=== PATIENT | male | born 1965 | race Caucasian/White ===

== ENCOUNTER 2017-08-07 12:38 | Emergency (ER) | payer SELFPAY ==
[2017-08-07] MEDS ORDERED: Acetaminophen/oxyCODONE 325-5 MG Tab PO ONE (12:53)
--- NOTE | 2017-08-07 14:08 | CR ---
Chest and left ribs: Frontal view of the chest was obtained as well as three views of the left ribs. Comparison: No prior chest or rib exam. Heart size and mediastinum are normal. Minimal left basilar atelectasis is seen. Lungs otherwise are clear. No pneumothorax is identified. No discrete fracture or other left-sided rib abnormality is appreciated. Impression: 1. Left basilar atelectasis. 2. Nothing acute is otherwise seen on frontal chest x-ray. No definite left-sided rib fracture is seen. Nondisplaced fracture could be missed. Diagnostic code #2
--- NOTE | 2017-08-07 14:08 | CR ---
Left shoulder: Three views of the left shoulder were obtained. Comparison: No previous shoulder study. Acromioclavicular separation is seen with elevated left clavicle in relation to the acromion process. Glenohumeral joint is unremarkable. No acute fracture or other abnormality is seen. Impression: 1. Left acromioclavicular separation. Diagnostic code #3
--- NOTE | 2017-08-07 14:27 | EDM.PDOC ---
ED HPI GENERAL MEDICAL PROBLEM - General Chief Complaint: Upper Extremity Injury/Pain Stated Complaint: LEFT SHOULDER INJURY Time Seen by Provider: 08/07/17 12:47 Source of Information: Reports: Patient History Limitations: Reports: No Limitations - History of Present Illness INITIAL COMMENTS - FREE TEXT/NARRATIVE: The patient presents with left shoulder and chest pain after he fell yesterday. He did not hit his head or hurt his neck. He has pain with moving his arm and he noticed a deformity looking in the mirror in his shoulder yesterday. He has pain with deep breathing. He has no abdominal pain, hip or leg pain. He has no numbness or weakness. Onset: Sudden Duration: Day(s): (Yesterday) Location: Reports: Chest, Upper Extremity, Left (Shoulder) Quality: Reports: Sharp Severity: Moderate Improves with: Reports: Immobilization Worsens with: Reports: Movement Associated Symptoms: Reports: Chest Pain. Denies: Headaches, Nausea/Vomiting, Shortness of Breath Treatments PHYSICAL THERAPY PROFESSOR: Reports: Other (see below) Other Treatments PHYSICAL THERAPY PROFESSOR: Advil Left Shoulder Pain Score (Numeric/FACES): 8 - Related Data Allergies Allergy/AdvReac Type Severity Reaction Status Date / Time bees Allergy Anaphylactic Uncoded 08/07/17 12:44 Shock kidney dye Allergy Cannot Uncoded 08/07/17 12:44 Remember Home Meds: Home Meds oxyCODONE HCl/Acetaminophen [Percocet 5-325 mg Tablet] 1 - 2 each PO Q6HR PRN # 20 tablet 08/07/17 [Rx] Past Medical History Genitourinary History: Reports: Other (See Below) Other Genitourinary History: left kidney removed Social & Family History - Tobacco Use Smoking Status *Q: Current Every Day Smoker Years of Tobacco use: 38 Packs/Tins Daily: 1 - Recreational Drug Use Recreational Drug Use: Yes Drug Use in Last 12 Months: Yes Recreational Drug Type: Reports: Marijuana/Hashish Review of Systems - Review of Systems Review Of Systems: See Below Constitutional: Reports: No Symptoms Eyes: Reports: No Symptoms Ears: Reports: No Symptoms Nose: Reports: No Symptoms Mouth/Throat: Reports: No Symptoms Respiratory: Reports: No Symptoms Cardiovascular: Reports: Chest Pain GI/Abdominal: Reports: No Symptoms Genitourinary: Reports: No Symptoms Musculoskeletal: Reports: No Symptoms ED EXAM, GENERAL - Physical Exam Exam: See Below Exam Limited By: No Limitations General Appearance: Alert, No Apparent Distress Ears: Normal External Exam Nose: Normal Inspection Head: Atraumatic, Normocephalic Neck: Normal Inspection Respiratory/Chest: No Respiratory Distress, Lungs Clear, Normal Breath Sounds Cardiovascular: Regular Rate, Rhythm, No Edema, No Murmur, Other (Left chest pain upon palpation) GI/Abdominal: Soft, Non-Tender, No Organomegaly, No Mass Back Exam: Normal Inspection Extremities: Other (Pain upon palpation to the left AC joint) Neurological: Alert, Oriented, No Motor/Sensory Deficits Course - Vital Signs Last Recorded V/S: Last Vital Signs Temp 98.3 F 08/07/17 12:44 Pulse 90 08/07/17 12:44 Resp 18 08/07/17 12:44 BP 130/93 H 08/07/17 12:44 Pulse Ox 94 L 08/07/17 12:44 - Orders/Labs/Meds Orders: Active Orders 24 hr Category Date Time Status Incentive Spirometry [RT Incentive Spirometry] [RC] Care 08/07/17 14:24 Active ASDIRECTED Durable Medical Equipment for Discharge [DME for Oth 08/07/17 14:28 Ordered Discharge] [COMM] Stat Meds: Medications Discontinued Medications Generic Name Dose Route Start Last Admin Trade Name Freq PRN Reason Stop Dose Admin Oxycodone/Acetaminophen 2 tab 08/07/17 12:53 08/07/17 13:00 Percocet 325-5 Mg PO 08/07/17 12:54 2 tab ONETIME ONE Administration - Re-Assessments/Exams Free Text/Narrative Re-Assessment/Exam: 08/07/17 14:31 His CXR shows a left rib fracture. Dr Wood did not see that but clinically it appears he has one. X-ray of his shoulder shows an AC separation. I gave him some percocet. I will give him some percocet for the pain, sling for his arm and incentive spyrometer. Departure - Departure Time of Disposition: 14:35 Disposition: Home, Self-Care 01 Condition: Good Clinical Impression: Fall Qualifiers: Encounter type: initial encounter Qualified Code(s): W19.XXXA - Unspecified fall, initial encounter Rib fracture Qualifiers: Encounter type: initial encounter Rib fracture type: single rib Fracture type: closed Laterality: left Qualified Code(s): S22.32XA - Fracture of one rib, left side, initial encounter for closed fracture AC separation Qualifiers: Encounter type: initial encounter Laterality: left Qualified Code(s): S43.102A - Unspecified dislocation of left acromioclavicular joint, initial encounter - Discharge Information Prescriptions: oxyCODONE HCl/Acetaminophen [Percocet 5-325 mg Tablet] 1 - 2 each PO Q6HR PRN # 20 tablet PRN Reason: Pain Referrals: Geoff Anand Jr, MD [Primary Care Provider] - 1 Week Forms: ED Department Discharge Additional Instructions: Take the percocet 1 to 2 pills every 6 hours as needed for pain. Ice your shoulder for 15 minutes 3 times per day for 5 days. Follow up with Dr Butler within 1 week. Please return if you are worse. Use the incentive spyrometer 10 reps every other hour for 5 days. - My Orders Last 24 Hours: My Active Orders 08/07/17 14:24 Incentive Spirometry [RT Incentive Spirometry] [RC] ASDIRECTED 08/07/17 14:28 Durable Medical Equipment for Discharge [DME for Discharge] [COMM] Stat - Assessment/Plan Last 24 Hours: My Active Orders 08/07/17 14:24 Incentive Spirometry [RT Incentive Spirometry] [RC] ASDIRECTED 08/07/17 14:28 Durable Medical Equipment for Discharge [DME for Discharge] [COMM] Stat
== END 2017-08-07 14:55 | disposition home or self-care (01) ==
LOC: JD.ED 12:38
DX: S22.32XA Fracture of one rib, left side, initial encounter for closed fracture (principal); S43.102A Unspecified dislocation of left acromioclavicular joint, initial encounter; F17.210 Nicotine dependence, cigarettes, uncomplicated; Z90.5 Acquired absence of kidney; Z91.030 Bee allergy status; Z91.041 Radiographic dye allergy status; W19.XXXA Unspecified fall, initial encounter
CPT/HCPCS: 71101; 73030; 99284; A9270; 99283

== ENCOUNTER 2017-08-15 16:09 | Emergency (ER) | payer SELFPAY ==
--- NOTE | 2017-08-15 17:14 | EDM.PDOC ---
ED HPI GENERAL MEDICAL PROBLEM - General Chief Complaint: Chest Pain Stated Complaint: FOLLOW UP FOR BROKEN RIBS Time Seen by Provider: 08/15/17 16:49 Source of Information: Reports: Patient History Limitations: Reports: No Limitations - History of Present Illness INITIAL COMMENTS - FREE TEXT/NARRATIVE: Patient is a 52-year-old male who is being seen in the ED with concerns of continued pain from fractured ribs after falling on a 5 gallon bucket landing on the left side of his chest and clavicle. He was intially evaluated in the E.D. with CXR obtained with possible left rib fractures. X-ray of the clavicle did not reveal fracture present. There was also A/C separation. He was discharged home with narcotic pain medications to which hes been taking only at night prior to going to bed secondary to pain. He's been refraining from activities that cause worsening pain. States he ran out of this medication yesterday at about 1500 hrs. Unable to sleep last night. Unable to get in with his prior care provider Geoff Anand until September 07, 2017. He denies any new complaints. Treatments YIELD CLERK: Reports: Other (see below) Other Treatments YIELD CLERK: motrin Left Chest Pain Score (Numeric/FACES): 8 - Related Data Allergies Allergy/AdvReac Type Severity Reaction Status Date / Time bees Allergy Anaphylactic Uncoded 08/07/17 12:44 Shock kidney dye Allergy Cannot Uncoded 08/07/17 12:44 Remember Home Meds: Home Meds oxyCODONE HCl/Acetaminophen [Percocet 5-325 mg Tablet] 1 each PO Q6HR PRN #20 tablet 08/15/17 [Rx] Past Medical History Genitourinary History: Reports: Other (See Below) Other Genitourinary History: left kidney removed Musculoskeletal History: Reports: Other (See Below) Other Musculoskeletal History: right foot and left foot with pins and have been removed. Social & Family History - Tobacco Use Smoking Status *Q: Current Every Day Smoker Years of Tobacco use: 35 Packs/Tins Daily: 2 - Caffeine Use Caffeine Use: Reports: Coffee, Soda - Recreational Drug Use Recreational Drug Use: Yes Drug Use in Last 12 Months: Yes Recreational Drug Type: Reports: Marijuana/Hashish Review of Systems - Review of Systems Review Of Systems: ROS reveals no pertinent complaints other than HPI. ED EXAM, GENERAL - Physical Exam Exam: See Below Exam Limited By: No Limitations General Appearance: Alert, WD/WN, Mild Distress Ears: Hearing Grossly Normal Nose: Normal Inspection Throat/Mouth: Normal Voice, No Airway Compromise Neck: Normal Inspection, Supple, Non-Tender, Full Range of Motion Respiratory/Chest: No Respiratory Distress, No Accessory Muscle Use, Chest Non- Tender (left clavicle) Cardiovascular: Normal Peripheral Pulses, Regular Rate, Rhythm Peripheral Pulses: 4+: Radial (L) Back Exam: Normal Inspection Extremities: Other (Grade 3 A/C joint seperation with pain noted along the left clavicle. ) Neurological: Alert, Oriented, CN II-XII Intact Psychiatric: Normal Affect, Normal Mood Skin Exam: Warm, Dry, Intact, Normal Color Course - Vital Signs Last Recorded V/S: Last Vital Signs Temp 98.4 F 08/15/17 16:25 Pulse 94 08/15/17 16:25 Resp 20 08/15/17 16:25 BP 125/89 08/15/17 16:25 Pulse Ox 98 08/15/17 16:25 - Re-Assessments/Exams Free Text/Narrative Re-Assessment/Exam: Will discharge patient home with instructions as documented. Prescription for narcotic medication provided. Departure - Departure Time of Disposition: 17:21 Disposition: Home, Self-Care 01 Condition: Good Clinical Impression: AC separation Qualifiers: Encounter type: initial encounter Laterality: left Qualified Code(s): S43.102A - Unspecified dislocation of left acromioclavicular joint, initial encounter - Discharge Information Prescriptions: oxyCODONE HCl/Acetaminophen [Percocet 5-325 mg Tablet] 1 each PO Q6HR PRN #20 tablet PRN Reason: Pain Instructions: Acromioclavicular Separation, Nonspecific Chest Pain, Easy-to- Read Referrals: Geoff Anand Jr, MD [Primary Care Provider] - Forms: ED Department Discharge Additional Instructions: Continue taking the narcotic pain medication as prescribed. No driving while taking this medication. No operate heavy equipment. Utilize Tylenol and ibuprofen in alternating fashion for pain. For severe pain take the narcotic. Apply ice to affected area as needed throughout the day. Refrain from any activities that cause worsening pain. Follow-up with orthopedic surgeon for further pain management and evaluation.
== END 2017-08-15 17:55 | disposition home or self-care (01) ==
LOC: JD.ED 16:09
DX: S43.102A Unspecified dislocation of left acromioclavicular joint, initial encounter (principal); F17.210 Nicotine dependence, cigarettes, uncomplicated; Z90.5 Acquired absence of kidney; Z91.041 Radiographic dye allergy status; Z91.030 Bee allergy status; W19.XXXA Unspecified fall, initial encounter
CPT/HCPCS: 99283

== ENCOUNTER 2018-06-24 10:20 | Inpatient (IN) | payer SELFPAY ==
[2018-06-24] MEDS ORDERED: HYDROmorphone 1 MG/ML Syringe IVPUSH ONE ×2 (11:29→13:32)
[2018-06-24] MEDS ORDERED: Sodium Chloride 0.9% 10 ML Syringe FLUSH PRN (11:29)
[2018-06-24] MEDS ORDERED: Lactated Ringers 1,000 ML IV ONE ×2 (11:29→14:34)
[2018-06-24] MEDS ORDERED: Ondansetron 4 MG/2 ML SDV IVPUSH ONE (11:29)
--- NOTE | 2018-06-24 11:38 | EDM.PDOC ---
<Eveline Harrington - Last Filed: 06/24/18 11:45> ED HPI GENERAL MEDICAL PROBLEM - General Chief Complaint: Abdominal Pain Stated Complaint: LOW ABD PAIN Time Seen by Provider: 06/24/18 11:03 Source of Information: Reports: Patient, Family (mother) History Limitations: Reports: No Limitations - History of Present Illness INITIAL COMMENTS - FREE TEXT/NARRATIVE: Lionel is a 52 year old male accompanied by his mother, Mary, who presents to the ED today for right sided abdominal pain for the past 3 days. Patient states that after eating an [employer] mushroom and swazi, he later developed intense, sharp pain in his abdomen on the right side. At first he thought he was " stopped up", since his last BM was 4 days ago, and he has not been passing as much gas as usual. He took Tylenol PM to help himself sleep. Last night he took Miralax and a suppository with no BM. He then decided the pain was intolerable and came in today. He states that the pain has been the same intensity since it started, and is constant. It is painful to use his core muscles. He was very uncomfortable on the drive into the ED today, especially going over bumps in the road. He has not eaten anything since , and states that drinking makes the pain worse as it adds more abdominal pressure. Patient does smoke 1-2 ppd for the past 40 years, and is a daily marijuana smoker, but has not smoked in the past 4 days. He has decreased urination, and feels that he is dehydrated. He denies any fever, chills, nightsweats. Denies any URI symptoms, chest pain, SOB. Denies nausea, vomiting, diarrhea. Patient does also have a left shoulder complaint that is being worked up by Dr. Butler. Right Abdomen Pain Score (Numeric/FACES): 9 - Related Data Allergies Allergy/AdvReac Type Severity Reaction Status Date / Time bees Allergy Anaphylactic Uncoded 06/24/18 18:35 Shock kidney dye Allergy Cannot Uncoded 06/24/18 18:35 Remember Home Meds: Home Meds . [No Known Home Meds] 06/24/18 [History] Past Medical History Genitourinary History: Reports: Other (See Below) Other Genitourinary History: left kidney removed Musculoskeletal History: Reports: Other (See Below) Other Musculoskeletal History: right foot and left foot with pins and have been removed. Social & Family History - Tobacco Use Smoking Status *Q: Heavy Tobacco Smoker Years of Tobacco use: 40 Packs/Tins Daily: 1.5 - Caffeine Use Caffeine Use: Reports: Coffee - Recreational Drug Use Recreational Drug Use: Yes Recreational Drug Type: Reports: Marijuana/Hashish Recreational Drug Use Frequency: Daily ED ROS GENERAL - Review of Systems Review Of Systems: See Below Constitutional: Reports: No Symptoms HEENT: Reports: No Symptoms Respiratory: Reports: No Symptoms Cardiovascular: Reports: No Symptoms GI/Abdominal: Reports: Abdominal Pain (RUQ, RLQ), Constipation, Decreased Appetite. Denies: Black Stool, Bloody Stool, Diarrhea, Nausea, Vomiting : Reports: Other (decreased frequency) Musculoskeletal: Reports: No Symptoms Neurological: Reports: No Symptoms Psychiatric: Reports: Agitation ED EXAM, GI/ABD - Physical Exam Exam: See Below Exam Limited By: Other (patient is guarding abdomen quite a bit, and somewhat uncooperative.) General Appearance: Alert, Mild Distress Throat/Mouth: Other (dry mucous membranes) Respiratory/Chest: No Respiratory Distress, Normal Breath Sounds Cardiovascular: No Gallop, No Murmur, No Rub, Tachycardia GI/Abdominal Exam: Normal Bowel Sounds (all four quadrants), Guarding, Rebound, Tender (McBurney's point tenderness, Rebound Tenderness. Very tender in the RUQ and RLQ), Other (Heel percussion negative. psoas sign positive. ). No: Hernia, Mass Neurological: Alert, Oriented Psychiatric: Other (Irritated ) Skin Exam: Warm, Dry, Intact Course - Vital Signs Last Recorded V/S: Last Vital Signs Temp 98.7 F 06/24/18 18:01 Pulse 95 06/24/18 21:01 Resp 12 06/24/18 18:01 BP 137/83 06/24/18 21:01 Pulse Ox 97 06/24/18 21:01 - Orders/Labs/Meds Orders: Active Orders 24 hr Category Date Time Status Patient Status [ADT] Routine ADT 06/24/18 15:11 Active Patient Status [ADT] Routine ADT 06/24/18 16:52 Active Activity as Tolerated [RC] .Routine Care 06/24/18 17:00 Active Notify Provider [RC] ASDIRECTED Care 06/24/18 16:51 Active Oxygen Therapy [RC] PRN Care 06/24/18 16:52 Active Pulse Oximetry [RC] ASDIRECTED Care 06/24/18 16:51 Active VTE/DVT Education [RC] PER UNIT ROUTINE Care 06/24/18 16:52 Active Vital Signs [RC] Q4HR Care 06/24/18 16:52 Active Consistent Carbohydrate Diet [DIET] Diet 06/25/18 Lunch Active Regular Diet [DIET] Diet 06/24/18 Dinner Active Acetaminophen/HYDROcodone [[place] 325-5 MG] Med 06/24/18 16:55 Active 2 tab PO Q4H PRN Ertapenem [INVanz] 1 gm Med 06/25/18 09:00 Active Sodium Chloride 0.9% [Normal Saline] 100 ml IV DAILY Morphine Med 06/24/18 16:58 Active 4 mg IVPUSH Q2H PRN Sodium Chloride 0.9% [Normal Saline] 1,000 ml Med 06/24/18 17:00 Active IV ASDIRECTED Sodium Chloride 0.9% [Saline Flush] Med 06/24/18 11:29 Active 10 ml FLUSH ASDIRECTED PRN Peripheral IV Insertion Adult [OM.PC] Routine Oth 06/24/18 11:29 Ordered SCD [Sequential Compression Device] [OM.PC] Routine Oth 06/24/18 17:06 Ordered Schedule Procedure [COMM] Stat Oth 06/24/18 15:10 Ordered Resuscitation Status Routine Resus Stat 06/24/18 16:52 Ordered Medication Orders Hydrocodone Bitart/Acetaminophen ([place] 325-5 Mg) 2 tab PO Q4H PRN PRN Reason: Pain (moderate 4-6) Ertapenem 1 gm/ Sodium (Chloride) 100 mls @ 200 mls/hr IV DAILY RONALD Sodium Chloride (Normal Saline) 1,000 mls @ 100 mls/hr IV ASDIRECTED RONALD Last Admin: 06/24/18 18:16 Dose: 100 mls/hr Morphine Sulfate (Morphine) 4 mg IVPUSH Q2H PRN PRN Reason: Abdominal Pain Stop: 06/26/18 23:59 Last Admin: 06/24/18 22:45 Dose: 4 mg Sodium Chloride (Saline Flush) 10 ml FLUSH ASDIRECTED PRN PRN Reason: Keep Vein Open Last Admin: 06/24/18 11:45 Dose: 10 ml Labs: Laboratory Tests 06/24/18 06/24/18 06/24/18 Range/Units 12:05 12:05 15:30 WBC 14.86 H (4.23-9.07) K/mm3 RBC 5.31 (4.63-6.08) M/mm3 Hgb 15.5 (13.7-17.5) gm/L Hct 46.6 (40.1-51.0) % MCV 87.8 (79.0-92.2) fl MCH 29.2 (25.7-32.2) pg MCHC 33.3 (32.2-35.5) g/dl RDW Std Deviation 43.4 (35.1-43.9) fL Plt Count 313 (163-337) K/mm3 MPV 10.1 (9.4-12.3) fl Neutrophils % (Manual) 87 H (40-60) % Band Neutrophils % 0 (0-10) % Lymphocytes % (Manual) 12 L (20-40) % Atypical Lymphs % 0 % Monocytes % (Manual) 1 L (2-10) % Eosinophils % (Manual) 0 L (0.8-7.0) % Basophils % (Manual) 0 L (0.2-1.2) Platelet Estimate Adequate RBC Morph Comment Normal Sodium 134 L (136-145) mEq/L Potassium 4.1 (3.5-5.1) mEq/L Chloride 99 (98-107) mEq/L Carbon Dioxide 23 (21-32) mEq/L Anion Gap 16.1 H (5-15) BUN 22 H (7-18) mg/dL Creatinine 1.2 (0.7-1.3) mg/dL Est Cr Clr Drug Dosing 76.04 mL/min Estimated GFR (MDRD) > 60 (>60) mL/min BUN/Creatinine Ratio 18.3 H (14-18) Glucose 111 H (74-106) mg/dL Calcium 9.4 (8.5-10.1) mg/dL Total Bilirubin 0.4 (0.2-1.0) mg/dL AST 10 L (15-37) U/L ALT 12 L (16-63) U/L Alkaline Phosphatase 90 (46-116) U/L C-Reactive Protein 41.8 H* (<1.0) mg/dL Total Protein 7.7 (6.4-8.2) g/dl Albumin 2.9 L (3.4-5.0) g/dl Globulin 4.8 gm/dL Albumin/Globulin Ratio 0.6 L (1-2) Lipase 70 L (73-393) U/L Urine Color Yellow (Yellow) Urine Appearance Clear (Clear) Urine pH 6.0 (5.0-8.0) Ur Specific [place] 1.015 (1.005-1.030) Urine Protein Trace H (Negative) Urine Glucose (UA) Negative (Negative) Urine Ketones Negative (Negative) Urine Occult Blood Trace-intact H (Negative) Urine Nitrite Negative (Negative) Urine Bilirubin Negative (Negative) Urine Urobilinogen 0.2 (0.2-1.0) Ur Leukocyte Esterase Negative (Negative) Urine RBC 0-5 (0-5) /hpf Urine WBC 0-5 (0-5) /hpf Ur Epithelial Cells 0-5 (0-5) /hpf Urine Bacteria Few (FEW) /hpf Urine Mucus Few (FEW) /hpf Meds: Medications Generic Name Dose Route Start Last Admin Trade Name Freq PRN Reason Stop Dose Admin Hydrocodone Bitart/Acetaminophen 2 tab 06/24/18 16:55 [place] 325-5 Mg PO Q4H PRN Pain (moderate 4-6) Ertapenem 1 gm/ Sodium 100 mls @ 200 mls/hr 06/25/18 09:00 Chloride IV DAILY RONALD Sodium Chloride 1,000 mls @ 100 mls/hr 06/24/18 17:00 06/24/18 18:16 Normal Saline IV 100 mls/hr ASDIRECTED RONALD Administration Morphine Sulfate 4 mg 06/24/18 16:58 06/24/18 22:45 Morphine IVPUSH 06/26/18 23:59 4 mg Q2H PRN Administration Abdominal Pain Sodium Chloride 10 ml 06/24/18 11:29 06/24/18 11:45 Saline Flush FLUSH 10 ml ASDIRECTED PRN Administration Keep Vein Open Discontinued Medications Generic Name Dose Route Start Last Admin Trade Name Freq PRN Reason Stop Dose Admin Diatrizoate Meglum/Diatrizoate Sod 120 ml 06/24/18 13:01 06/24/18 13:38 Gastrografin 37% PO 06/24/18 13:02 90 ml ONETIME ONE Administration Diphenhydramine HCl 25 mg 06/24/18 12:56 06/24/18 13:02 Benadryl IVPUSH 06/24/18 12:57 25 mg ONETIME ONE Administration Fentanyl Confirm 06/24/18 15:02 Sublimaze Administered 06/24/18 15:03 Dose 250 mcg .ROUTE .STK-MED ONE Fentanyl Confirm 06/24/18 16:10 Sublimaze Administered 06/24/18 16:11 Dose 250 mcg .ROUTE .STK-MED ONE Fentanyl 50 mcg 06/24/18 16:51 Sublimaze IVPUSH Q5M PRN Pain Glycopyrrolate Confirm 06/24/18 16:25 Administered 06/24/18 16:26 Dose 1 mg .ROUTE .STK-MED ONE Hydromorphone HCl 1 mg 06/24/18 11:29 06/24/18 11:45 Dilaudid IVPUSH 06/24/18 11:30 1 mg ONETIME ONE Administration Hydromorphone HCl 1 mg 06/24/18 13:32 06/24/18 13:36 Dilaudid IVPUSH 06/24/18 13:33 1 mg ONETIME ONE Administration Hydromorphone HCl Confirm 06/24/18 15:59 Dilaudid Administered 06/24/18 16:00 Dose 0.5 mg .ROUTE .STK-MED ONE Hydromorphone HCl Confirm 06/24/18 15:59 Dilaudid Administered 06/24/18 16:00 Dose 0.5 mg .ROUTE .STK-MED ONE Hydromorphone HCl 0.5 mg 06/24/18 16:51 Dilaudid IVPUSH Q10M PRN Pain (severe 7-10) Lactated Ringer's 1,000 mls @ 999 mls/hr 06/24/18 11:29 06/24/18 11:43 Ringers, Lactated IV 06/24/18 12:29 999 mls/hr .BOLUS ONE Administration Ertapenem 1 gm/ Sodium 100 mls @ 200 mls/hr 06/24/18 14:07 06/24/18 14:18 Chloride IV 06/24/18 14:36 200 mls/hr ONETIME ONE Administration Lactated Ringer's 1,000 mls @ 150 mls/hr 06/24/18 14:34 06/24/18 14:54 Ringers, Lactated IV 06/24/18 21:13 150 mls/hr .BOLUS ONE Administration Lidocaine HCl Confirm 06/24/18 15:02 Xylocaine-Mpf 1% Administered 06/24/18 15:03 Dose 4 mls @ as directed .ROUTE .STK-MED ONE Lactated Ringer's Confirm 06/24/18 16:08 Ringers, Lactated Administered 06/24/18 16:09 Dose 1,000 mls @ as directed .ROUTE .STK-MED ONE Iopamidol 100 ml 06/24/18 13:01 06/24/18 13:39 Isovue-300 (61%) IVPUSH 06/24/18 13:02 100 ml ONETIME ONE Administration Lidocaine HCl Confirm 06/24/18 15:00 06/24/18 15:50 Xylocaine-Mpf 1% Administered 06/24/18 15:01 8 ml Dose Administration 30 ml .ROUTE .STK-MED ONE Magnesium Citrate 296 ml 06/24/18 16:56 06/24/18 18:16 Citrate Of Magnesia PO 06/24/18 16:57 296 ml ONETIME ONE Administration Midazolam HCl Confirm 06/24/18 15:02 Versed 1 Mg/Ml Administered 06/24/18 15:03 Dose 2 mg .ROUTE .STK-MED ONE Neostigmine Methylsulfate Confirm 06/24/18 16:25 Neostigmine Administered 06/24/18 16:26 Dose 5 mg .ROUTE .STK-MED ONE Ondansetron HCl 4 mg 06/24/18 11:29 06/24/18 11:45 Zofran IVPUSH 06/24/18 11:30 4 mg ONETIME ONE Administration Ondansetron HCl Confirm 06/24/18 15:01 Zofran Administered 06/24/18 15:02 Dose 4 mg .ROUTE .STK-MED ONE Propofol Confirm 06/24/18 15:01 Diprivan 20 Ml Administered 06/24/18 15:02 Dose 200 mg .ROUTE .STK-MED ONE Rocuronium [place] Confirm 06/24/18 15:01 Zemuron Administered 06/24/18 15:02 Dose 50 mg .ROUTE .STK-MED ONE Departure - Departure Disposition: DC/Tfer to [facility] Clinical Impression: Appendicitis - Discharge Information - My Orders Last 24 Hours: My Active Orders 06/24/18 11:29 Sodium Chloride 0.9% [Saline Flush] 10 ml FLUSH ASDIRECTED PRN Peripheral IV Insertion Adult [OM.PC] Routine - Assessment/Plan Last 24 Hours: My Active Orders 06/24/18 11:29 Sodium Chloride 0.9% [Saline Flush] 10 ml FLUSH ASDIRECTED PRN Peripheral IV Insertion Adult [OM.PC] Routine <Letty Vega - Last Filed: 06/25/18 00:31> ED HPI GENERAL MEDICAL PROBLEM - History of Present Illness INITIAL COMMENTS - FREE TEXT/NARRATIVE: I have seen the patient and agree with the HPI as documented by AMADA Blanco. ED ROS GENERAL - Review of Systems Constitutional: Reports: Decreased Appetite GI/Abdominal: Reports: Abdominal Pain : Reports: No Symptoms ED EXAM, GI/ABD - Physical Exam Exam: See Below Exam Limited By: No Limitations General Appearance: Alert, WD/WN, Mild Distress Course - Orders/Labs/Meds Labs: Laboratory Tests 06/24/18 06/24/18 06/24/18 Range/Units 12:05 12:05 15:30 WBC 14.86 H (4.23-9.07) K/mm3 RBC 5.31 (4.63-6.08) M/mm3 Hgb 15.5 (13.7-17.5) gm/L Hct 46.6 (40.1-51.0) % MCV 87.8 (79.0-92.2) fl MCH 29.2 (25.7-32.2) pg MCHC 33.3 (32.2-35.5) g/dl RDW Std Deviation 43.4 (35.1-43.9) fL Plt Count 313 (163-337) K/mm3 MPV 10.1 (9.4-12.3) fl Neutrophils % (Manual) 87 H (40-60) % Band Neutrophils % 0 (0-10) % Lymphocytes % (Manual) 12 L (20-40) % Atypical Lymphs % 0 % Monocytes % (Manual) 1 L (2-10) % Eosinophils % (Manual) 0 L (0.8-7.0) % Basophils % (Manual) 0 L (0.2-1.2) Platelet Estimate Adequate RBC Morph Comment Normal Sodium 134 L (136-145) mEq/L Potassium 4.1 (3.5-5.1) mEq/L Chloride 99 (98-107) mEq/L Carbon Dioxide 23 (21-32) mEq/L Anion Gap 16.1 H (5-15) BUN 22 H (7-18) mg/dL Creatinine 1.2 (0.7-1.3) mg/dL Est Cr Clr Drug Dosing 76.04 mL/min Estimated GFR (MDRD) > 60 (>60) mL/min BUN/Creatinine Ratio 18.3 H (14-18) Glucose 111 H (74-106) mg/dL Calcium 9.4 (8.5-10.1) mg/dL Total Bilirubin 0.4 (0.2-1.0) mg/dL AST 10 L (15-37) U/L ALT 12 L (16-63) U/L Alkaline Phosphatase 90 (46-116) U/L C-Reactive Protein 41.8 H* (<1.0) mg/dL Total Protein 7.7 (6.4-8.2) g/dl Albumin 2.9 L (3.4-5.0) g/dl Globulin 4.8 gm/dL Albumin/Globulin Ratio 0.6 L (1-2) Lipase 70 L (73-393) U/L Urine Color Yellow (Yellow) Urine Appearance Clear (Clear) Urine pH 6.0 (5.0-8.0) Ur Specific [place] 1.015 (1.005-1.030) Urine Protein Trace H (Negative) Urine Glucose (UA) Negative (Negative) Urine Ketones Negative (Negative) Urine Occult Blood Trace-intact H (Negative) Urine Nitrite Negative (Negative) Urine Bilirubin Negative (Negative) Urine Urobilinogen 0.2 (0.2-1.0) Ur Leukocyte Esterase Negative (Negative) Urine RBC 0-5 (0-5) /hpf Urine WBC 0-5 (0-5) /hpf Ur Epithelial Cells 0-5 (0-5) /hpf Urine Bacteria Few (FEW) /hpf Urine Mucus Few (FEW) /hpf - Radiology Interpretation Free Text/Narrative:: CT abdomen and pelvis Technique: Multiple axial sections were obtained from above the dome of the diaphragm inferiorly through the pubic symphysis. Intravenous and oral contrast was utilized. Oral contrast remains within the proximal and mid small bowel. Delayed images were obtained through the bladder. Comparison: No prior intra-abdominal imaging is available. Findings: Dilated small bowel loops are identified. Appendix is dilated with surrounding inflammatory change compatible with appendicitis. Small bowel dilatation is most likely due to ileus from the appendicitis. No free fluid is appreciated. Slight atelectasis is seen within both lung bases. Liver shows no focal abnormality. Spleen appears within normal limits. Small hiatal hernia is seen. Adrenal glands show no nodule. Pancreas is normal. Right kidney shows no hydronephrosis or mass. No left kidney is seen. Mild atherosclerotic calcification noted within the aorta and iliac vessels. No aneurysm is seen. No retroperitoneal adenopathy is identified. No pelvic mass or adenopathy is seen. Impression: 1. Dilated appendix with surrounding inflammatory change compatible with appendicitis. 2. Dilated small bowel likely due to ileus from the appendicitis. 3. Absent left kidney. 4. Small hiatal hernia. - Re-Assessments/Exams Free Text/Narrative Re-Assessment/Exam: 06/24/18 12:01 I have seen the patient and agree with the HPI, ROS and PE as documented by AMADA Blanco. Patient is very tender in the right lower quadrant McBurney's point. Movement worsens abdominal pain and he has no appetite. Will go ahead with CT of the abdomen and pelvis to rule out acute appy. Dilaudid for pain control. 06/24/18 14:05 CT results returned. Discussed with patient. Hasn't had anything significant to eat in the last few days. Case discussed with Dr. Leahy, hospitalist on-call. She will come to the ER and see the patient; plan to take to the OR. Will give 1 g IV Invanz in the meantime. Departure - Departure Time of Disposition: 14:07 Condition: Fair - Discharge Information *PRESCRIPTION DRUG MONITORING PROGRAM REVIEWED*: No *COPY OF PRESCRIPTION DRUG MONITORING REPORT IN PATIENT [place]: No
[2018-06-24] MEDS ORDERED: diphenhydrAMINE 50 MG/ML SDV IVPUSH ONE (12:56)
[2018-06-24] MEDS ORDERED: Diatrizoate Meglumine/Diatrizoate Sodium 37% 120 ML Bottle PO ONE (13:01)
[2018-06-24] MEDS ORDERED: Iopamidol 612 MG/ML 100 ML Bottle IVPUSH ONE (13:01)
--- NOTE | 2018-06-24 13:49 | CT ---
CT abdomen and pelvis Technique: Multiple axial sections were obtained from above the dome of the diaphragm inferiorly through the pubic symphysis. Intravenous and oral contrast was utilized. Oral contrast remains within the proximal and mid small bowel. Delayed images were obtained through the bladder. Comparison: No prior intra-abdominal imaging is available. Findings: Dilated small bowel loops are identified. Appendix is dilated with surrounding inflammatory change compatible with appendicitis. Small bowel dilatation is most likely due to ileus from the appendicitis. No free fluid is appreciated. Slight atelectasis is seen within both lung bases. Liver shows no focal abnormality. Spleen appears within normal limits. Small hiatal hernia is seen. Adrenal glands show no nodule. Pancreas is normal. Right kidney shows no hydronephrosis or mass. No left kidney is seen. Mild atherosclerotic calcification noted within the aorta and iliac vessels. No aneurysm is seen. No retroperitoneal adenopathy is identified. No pelvic mass or adenopathy is seen. Impression: 1. Dilated appendix with surrounding inflammatory change compatible with appendicitis. 2. Dilated small bowel likely due to ileus from the appendicitis. 3. Absent left kidney. 4. Small hiatal hernia. Diagnostic code #5
[2018-06-24] MEDS ORDERED: Ertapenem 1 GM in Sodium Chloride 0.9% 100 ML IV ONE (14:07)
[2018-06-24] MEDS ORDERED: Lidocaine 1% 30 ML SDV ONE (15:00)
[2018-06-24] MEDS ORDERED: Rocuronium 50 MG/5 ML Vial ONE (15:01)
[2018-06-24] MEDS ORDERED: Propofol 200 MG/20 ML SDV ONE (15:01)
[2018-06-24] MEDS ORDERED: Ondansetron 4 MG/2 ML SDV ONE (15:01)
[2018-06-24] MEDS ORDERED: Lidocaine 1% 4 ML ONE (15:02)
[2018-06-24] MEDS ORDERED: fentaNYL 250 MCG/5 ML SDV ONE ×2 (15:02→16:10)
[2018-06-24] MEDS ORDERED: Midazolam 1 MG/ML 2 ML SDV ONE (15:02)
--- NOTE | 2018-06-24 15:25 | PCM.PREANE ---
Preanesthetic Assessment - Anesthesia/Transfusion/Family Hx Anesthesia History: Prior Anesthesia Without Reaction Family History of Anesthesia Reaction: No Transfusion History: No Prior Transfusion(s) - Review of Systems General: Fever, Weakness, Fatigue, Malaise Pulmonary: No Symptoms Cardiovascular: No Symptoms Gastrointestinal: Abdominal Pain Neurological: Numbness ("left shoulder hand") Other: Reports: None - Physical Assessment NPO Status Date: 06/21/18 NPO Status Time: 02:30 Pulse: 123 O2 Sat by Pulse Oximetry: 98 Respiratory Rate: 15 Blood Pressure: 135/90 Temperature: 36.7 C Vital Signs: Last Vital Signs Temp 36.7 C 06/24/18 10:38 Pulse 123 H 06/24/18 10:38 Resp 15 06/24/18 10:38 BP 135/90 06/24/18 10:38 Pulse Ox 98 06/24/18 10:38 Height: 1.78 m Weight: 77.111 kg ASA Class: 2E Mental Status: Alert & Oriented x3 Airway Class: Mallampati = 2 Dentition: Reports: Missing Tooth/Teeth Thyro-Mental Finger Breadths: 3 Mouth Opening Finger Breadths: 3 ROM/Head Extension: Full Lungs: Clear to Auscultation, Normal Respiratory Effort Cardiovascular: Regular Rate, Regular Rhythm - Lab Values: Laboratory Last Values WBC 14.86 K/mm3 (4.23-9.07) H 06/24/18 12:05 RBC 5.31 M/mm3 (4.63-6.08) 06/24/18 12:05 Hgb 15.5 gm/L (13.7-17.5) 06/24/18 12:05 Hct 46.6 % (40.1-51.0) 06/24/18 12:05 MCV 87.8 fl (79.0-92.2) 06/24/18 12:05 MCH 29.2 pg (25.7-32.2) 06/24/18 12:05 MCHC 33.3 g/dl (32.2-35.5) 06/24/18 12:05 RDW Std Deviation 43.4 fL (35.1-43.9) 06/24/18 12:05 Plt Count 313 K/mm3 (163-337) 06/24/18 12:05 MPV 10.1 fl (9.4-12.3) 06/24/18 12:05 Neutrophils % (Manual) 87 % (40-60) H 06/24/18 12:05 Band Neutrophils % 0 % (0-10) 06/24/18 12:05 Lymphocytes % (Manual) 12 % (20-40) L 06/24/18 12:05 Atypical Lymphs % 0 % 06/24/18 12:05 Monocytes % (Manual) 1 % (2-10) L 06/24/18 12:05 Eosinophils % (Manual) 0 % (0.8-7.0) L 06/24/18 12:05 Basophils % (Manual) 0 (0.2-1.2) L 06/24/18 12:05 Platelet Estimate Adequate 06/24/18 12:05 RBC Morph Comment Normal 06/24/18 12:05 Sodium 134 mEq/L (136-145) L 06/24/18 12:05 Potassium 4.1 mEq/L (3.5-5.1) 06/24/18 12:05 Chloride 99 mEq/L (98-107) 06/24/18 12:05 Carbon Dioxide 23 mEq/L (21-32) 06/24/18 12:05 Anion Gap 16.1 (5-15) H 06/24/18 12:05 BUN 22 mg/dL (7-18) H 06/24/18 12:05 Creatinine 1.2 mg/dL (0.7-1.3) 06/24/18 12:05 Est Cr Clr Drug Dosing 76.04 mL/min 06/24/18 12:05 Estimated GFR (MDRD) > 60 mL/min (>60) 06/24/18 12:05 BUN/Creatinine Ratio 18.3 (14-18) H 06/24/18 12:05 Glucose 111 mg/dL (74-106) H 06/24/18 12:05 Calcium 9.4 mg/dL (8.5-10.1) 06/24/18 12:05 Total Bilirubin 0.4 mg/dL (0.2-1.0) 06/24/18 12:05 AST 10 U/L (15-37) L 06/24/18 12:05 ALT 12 U/L (16-63) L 06/24/18 12:05 Alkaline Phosphatase 90 U/L (46-116) 06/24/18 12:05 C-Reactive Protein 41.8 mg/dL (<1.0) H* 06/24/18 12:05 Total Protein 7.7 g/dl (6.4-8.2) 06/24/18 12:05 Albumin 2.9 g/dl (3.4-5.0) L 06/24/18 12:05 Globulin 4.8 gm/dL 06/24/18 12:05 Albumin/Globulin Ratio 0.6 (1-2) L 06/24/18 12:05 Lipase 70 U/L (73-393) L 06/24/18 12:05 - Imaging/EKG Impressions: on chart - Allergies Allergies/Adverse Reactions: Allergies Allergy/AdvReac Type Severity Reaction Status Date / Time bees Allergy Anaphylactic Uncoded 08/07/17 12:44 Shock kidney dye Allergy Cannot Uncoded 08/07/17 12:44 Remember - Blood Blood Available: No Product(s) Available: None - Anesthesia Plan Pre-Op Medication Ordered: None - Acknowledgements Anesthesia Type Planned: General Anesthesia Pt an Appropriate Candidate for the Planned Anesthesia: Yes Alternatives and Risks of Anesthesia Discussed w Pt/Guardian: Yes Pt/Guardian Understands and Agrees with Anesthesia Plan: Yes PreAnesthesia Questionnaire Genitourinary History: Reports: Other (See Below) Other Genitourinary History: left kidney removed Musculoskeletal History: Reports: Other (See Below) Other Musculoskeletal History: right foot and left foot with pins and have been removed. - SUBSTANCE USE Smoking Status *Q: Heavy Tobacco Smoker Tobacco Use Within Last Twelve Months: Cigarettes Second Hand Smoke Exposure: No Recreational Drug Use History: Yes Recreational Drug Type: Reports: Marijuana/Hashish - HOME MEDS Home Medications: Home Meds . [No Known Home Meds] 06/24/18 [History] - CURRENT (IN HOUSE) MEDS Current Meds: Current Medications Lactated Ringer's (Ringers, Lactated) 1,000 mls @ 150 mls/hr IV .BOLUS ONE Stop: 06/24/18 21:13 Last Admin: 06/24/18 14:54 Dose: 150 mls/hr Sodium Chloride (Saline Flush) 10 ml FLUSH ASDIRECTED PRN PRN Reason: Keep Vein Open Last Admin: 06/24/18 11:45 Dose: 10 ml Discontinued Medications Diatrizoate Meglum/Diatrizoate Sod (Gastrografin 37%) 120 ml PO ONETIME ONE Stop: 06/24/18 13:02 Last Admin: 06/24/18 13:38 Dose: 90 ml Diphenhydramine HCl (Benadryl) 25 mg IVPUSH ONETIME ONE Stop: 06/24/18 12:57 Last Admin: 06/24/18 13:02 Dose: 25 mg Fentanyl (Sublimaze) Confirm Administered Dose 250 mcg .ROUTE .STK-MED ONE Stop: 06/24/18 15:03 Hydromorphone HCl (Dilaudid) 1 mg IVPUSH ONETIME ONE Stop: 06/24/18 11:30 Last Admin: 06/24/18 11:45 Dose: 1 mg Hydromorphone HCl (Dilaudid) 1 mg IVPUSH ONETIME ONE Stop: 06/24/18 13:33 Last Admin: 06/24/18 13:36 Dose: 1 mg Lactated Ringer's (Ringers, Lactated) 1,000 mls @ 999 mls/hr IV .BOLUS ONE Stop: 06/24/18 12:29 Last Admin: 06/24/18 11:43 Dose: 999 mls/hr Ertapenem 1 gm/ Sodium (Chloride) 100 mls @ 200 mls/hr IV ONETIME ONE Stop: 06/24/18 14:36 Last Admin: 06/24/18 14:18 Dose: 200 mls/hr Lidocaine HCl (Xylocaine-Mpf 1%) Confirm Administered Dose 4 mls @ as directed .ROUTE .STK-MED ONE Stop: 06/24/18 15:03 Iopamidol (Isovue-300 (61%)) 100 ml IVPUSH ONETIME ONE Stop: 06/24/18 13:02 Last Admin: 06/24/18 13:39 Dose: 100 ml Lidocaine HCl (Xylocaine-Mpf 1%) Confirm Administered Dose 30 ml .ROUTE .STK- MED ONE Stop: 06/24/18 15:01 Midazolam HCl (Versed 1 Mg/Ml) Confirm Administered Dose 2 mg .ROUTE .STK-MED ONE Stop: 06/24/18 15:03 Ondansetron HCl (Zofran) 4 mg IVPUSH ONETIME ONE Stop: 06/24/18 11:30 Last Admin: 06/24/18 11:45 Dose: 4 mg Ondansetron HCl (Zofran) Confirm Administered Dose 4 mg .ROUTE .STK-MED ONE Stop: 06/24/18 15:02 Propofol (Diprivan 20 Ml) Confirm Administered Dose 200 mg .ROUTE .STK-MED ONE Stop: 06/24/18 15:02 Rocuronium [place] (Zemuron) Confirm Administered Dose 50 mg .ROUTE .STK-MED ONE Stop: 06/24/18 15:02
[2018-06-24] MEDS ORDERED: HYDROmorphone 0.5 MG/0.5 ML Syringe ONE ×2 (15:59)
[2018-06-24] MEDS ORDERED: Lactated Ringers 1,000 ML ONE (16:08)
[2018-06-24] MEDS ORDERED: Neostigmine Methylsulfate 1 MG/ML 5 ML Syringe ONE (16:25)
[2018-06-24] MEDS ORDERED: fentaNYL 100 MCG/2 ML SDV IVPUSH PRN (16:51)
[2018-06-24] MEDS ORDERED: HYDROmorphone 0.5 MG/0.5 ML Syringe IVPUSH PRN (16:51)
--- NOTE | 2018-06-24 16:52 | PCM.POSTAN ---
POST ANESTHESIA ASSESSMENT - MENTAL STATUS Mental Status: Alert, Oriented - VITAL SIGNS Pulse Rate: 87 SaO2: 100 Resp Rate: 10 Blood Pressure: 146/90 Temperature: 37.9 C - RESPIRATORY Respiratory Status: Respiratory Rate WNL, Airway Patent, O2 Saturation Stable, Supplemental Oxygen - CARDIOVASCULAR CV Status: Pulse Rate WNL, Blood Pressure Stable - GASTROINTESTINAL GI Status: No Symptoms - PAIN Pain Score: 0 - POST OP HYDRATION Hydration Status: Adequate & Stable - OBSERVATIONS Free Text/Narrative:: no anesthesia complications noted
[2018-06-24] MEDS ORDERED: Acetaminophen/HYDROcodone 325-5 MG Tab PO PRN (16:55)
[2018-06-24] MEDS ORDERED: Magnesium Citrate Solution 296 ML Bottle PO ONE (16:56)
[2018-06-24] MEDS: Sodium Chloride 0.9% 1,000 ML IV SCH (18:16)
[2018-06-24] MEDS: Morphine 4 MG/ML Syringe IVPUSH PRN (22:45)
[2018-06-25] MEDS: Morphine 4 MG/ML Syringe IVPUSH PRN ×2 (01:27→04:28)
[2018-06-25] MEDS: Sodium Chloride 0.9% 1,000 ML IV SCH ×2 (04:18→14:13)
--- NOTE | 2018-06-25 06:18 | PCM48HPAN ---
Post Anesthesia Note - EVALUATION WITHIN 48HRS OF ANESTHETIC Vital Signs in Normal Range: Yes Patient Participated in Evaluation: Yes Respiratory Function Stable: Yes Airway Patent: Yes Cardiovascular Function Stable: Yes Hydration Status Stable: Yes Pain Control Satisfactory: Yes Nausea and Vomiting Control Satisfactory: Yes Mental Status Recovered: Yes
[2018-06-25] MEDS ORDERED: Ondansetron 4 MG/2 ML SDV IVPUSH PRN (06:19)
[2018-06-25] MEDS ORDERED: Bisacodyl 10 MG Supp RECTAL PRN (07:40)
--- NOTE | 2018-06-25 07:43 | OR ---
DATE OF OPERATION: 06/24/2018 SURGEON: Paula Leahy MD PREOPERATIVE DIAGNOSIS: Acute appendicitis. POSTOPERATIVE DIAGNOSIS: Acute perforated appendicitis with a localized peritonitis as well as a localized abscess. OPERATION PERFORMED: Laparoscopic appendectomy with drainage of the abscess as well as placement of a drain. ANESTHESIA: IV sedation. ESTIMATED BLOOD LOSS: Less than 5 mL. REPLACEMENT: Crystalloid. BRIEF HISTORY: This is a 52-year-old male who has been ill since . He arrived here with CT scan proven acute appendicitis. I had the opportunity to discuss my recommendation of an attempt at laparoscopic appendectomy with the risks, benefits to include the possibility of requiring an open procedure. He agreed to proceed. DESCRIPTION OF PROCEDURE: The patient was taken to the operating room after he was given IV hydration, the time-out was performed. The patient's general anesthesia was obtained with intubation and I confirmed good placement by listening and auscultation. The abdomen, I just shaved a bit from the suprapubic area to the infraumbilical area. Then, we prepped and draped in the usual fashion. 1% lidocaine was instilled in the subcutaneous tissue of the infraumbilical area. I dissected down to the skin and subcutaneous tissue. I was able to identify the fascia. I lifted the fascia between 2 sterile hemostats and made a garett in the fascia and advanced the Veress needle. This was fairly easy due to the fact he is so thin. I then advanced a 5 mm port and confirmed that we had good intraperitoneal positioning. At this point in time, then I was able to confirm he had localized peritonitis in that right lower quadrant. A 5 mm port was advanced under direct vision in the right upper quadrant and I was able to peel off the omentum off the peritoneal wall. Once I was able to do this, I could clearly see the tip of the appendix which was markedly inflamed. As we were just gently mobilizing this, an abscess cavity was came upon and we were able to successfully control the drainage of that using suction. I then made a suprapubic incision to advance the 12 mm port. Very carefully, I was able to see that there was a localized perforation of the appendix in the midportion of it. I was able to identify the base of the appendix which I was pleased was not markedly distended and I therefore fired the stapling device across this successfully. I took down the mesoappendiceal vessels using hemoclips. During this time, one stool ball had fell out of the appendix itself. What I was able to was with the bag in and get the appendix out and then I was able to successfully find a small piece of stool and again bring it out through the 12 mm port without further contamination. I then irrigated with 2.5 L of normal saline. Once I completed this, hemostasis was noted to be quite satisfactory and the fluid was now clear. I actually took the time to get the fluid away from the right subhepatic space. I then placed a 10 mm drain and placed it down over this in the right lower gutter. I removed the 12 mm port and again there was no bleeding noted at the site. The camera was removed. I reapproximated this fascia edges of the 12 and the infraumbilical 5 using an interrupted 0 PDS. Subcuticular closure was used for the skin. I attached the drain to the skin and the right upper quadrant, which is the port site that I used for the drain using the Prolene. The patient tolerated the procedure well and will be admitted for additional IV antibiotics. AUBREY /[id number]
--- NOTE | 2018-06-25 07:47 | CONS ---
CONSULTING PHYSICIAN: Paula Leahy MD DATE OF CONSULTATION: 06/24/2018 CHIEF COMPLAINT: Right lower quadrant pain. HISTORY OF PRESENT ILLNESS: Mr. Mora is a very tough kind a rios who since afternoon has had this right lower quadrant pain. He kind of stayed at home until today thinking that it would go away, but it is now to a point that he notes that he can hardly barely walk. He denies that it changed in his location from when it started. He stated that it started fairly quickly, but it was not associated with nausea, vomiting, any diarrhea, or constipation. He also denies he has had any sort of change in his usual bowel habits and he has no history of chronic bloody stools, chronic diarrhea of any sort. He also denies that there is any sort of family historyof any ulcerative colitis or Crohn disease. The patient also denies that he has ever had this discomfort before. ALLERGIES: He says to kidney dye and also bees. CURRENT MEDICATIONS: He denies having any current medications. SMOKING: Yes. ALCOHOL: Very very rarely. PAST SURGICAL HISTORY: He has had multiple histories in the past for orthopedic injury. He stated he has had ORIF of both ankles of his foot. He has had pins and screw that were subsequently removed. He has also had an issue with his left shoulder. He had an attempt at salvaging the kidney defect of his left kidney but subsequently underwent a left nephrectomy when he was a 11-year-old. SOCIAL HISTORY: He is gainfully employed and has a long-standing history of working in the [employer]. He has 1 brother and 1 sister alive and well. A sister who works here. 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 REVIEW OF SYSTEMS: He denies seizures or strokes. Denies blurred or double vision. He denies thyroid, diabetes, or hepatitis. He denies any sort of a chronic cough, but he is a heavy smoker. He denies any chest pain or tenderness. No chronic history of nausea, vomiting, ulcers, or kidney stones. As I stated in the HPI, he also denies any blood in his urine or blood in his stools. He has no history that I can elicit of DVT or any bleeding disorders. He denies having any sort of bleeding from his gums. PHYSICAL EXAMINATION: GENERAL: This is an ill-appearing male. VITAL SIGNS: Pulse is 123, blood pressure 135/50. He is clinically dehydrated. NECK: Without gross mass and there is no thyromegaly. LUNGS: Clear. HEART: Rhythm is regular. EXTREMITIES: There is a well-healed incision in the left subcostal area. There is tenderness with guarding in the right lower quadrant. There is no ankle edema and no bruising. LABORATORY WORK: Includes a CT scan of the abdomen and pelvis which has also been reviewed personally with a final reading consistent with a dilated appendix with surrounding inflammatory changes consistent with appendicitis. There is significant dilated small bowel. Of note (the patient has not had a bowel movement since that time). There are no signs of gross perforations that I can see. IMPRESSION AND PLAN: 1. Clearly, the CT scan does demonstrate signs of acute appendicitis, but with the distended small bowel, we also have to make sure that there is some sort of an obstructive process to include even a tumor even though on history and physical, I cannot appreciate that he has any source of bowel habit change. I clearly discussed that I would recommend an attempt at laparoscopic appendectomy. The risks include but not include limited to bleeding, infection, heart attack, , injury to structures not intended, and the need for even an open procedure. I clearly demonstrated where the incision would be if we would think about having to do an open procedure. I also explained to him that there could be a small chance that there would need to be some sort of a bowel resection depending on what we find. He also was made clear that sometimes we have to just simply leave drains and come back for multiple operative procedures. I offered him clearly a second opinion and transfer and he declined. The patient's hemoglobin and hematocrit today are 15 and 46 and his white blood count is 14,000. His sodium is mildly depressed at 134 but otherwise his electrolytes are okay. With this and we will go ahead and proceed. Another liter of fluid will be given as he is tachycardic. The patient's questions were answered. Antibiotics had been infused, and we will hopefully set up for him and get ready to go. 2. Mild dehydration. Intravenous fluids was initiated. 3. Status post left nephrectomy many years ago. 4. Strong history of smoking, multiple types of agents. 5. Status post multiple orthopedic injuries. MMODAL /[id number]
[2018-06-25] MEDS ORDERED: Bisacodyl 10 MG Supp RECTAL ONE ×2 (08:37→14:00)
[2018-06-25] MEDS ORDERED: Bisacodyl 10 MG Supp RECTAL SCH (08:45)
[2018-06-25] MEDS ORDERED: Ertapenem 1 GM in Sodium Chloride 0.9% 100 ML IV SCH (14:00)
[2018-06-25] MEDS ORDERED: Piperacillin/Tazobactam 4.5 GM in Sodium Chloride 0.9% 100 ML IV ONE (14:00)
[2018-06-25] MEDS ORDERED: Sodium Chloride 0.9% 1,000 ML IV SCH (15:45)
[2018-06-25] MEDS: Acetaminophen 325 MG Tab PO PRN (20:17)
[2018-06-25] MEDS: Piperacillin/Tazobactam 4.5 GM in Sodium Chloride 0.9% 100 ML IV SCH (21:25)
[2018-06-26] MEDS: Acetaminophen 325 MG Tab PO PRN ×2 (03:39→09:20)
[2018-06-26] MEDS: Piperacillin/Tazobactam 4.5 GM in Sodium Chloride 0.9% 100 ML IV SCH ×3 (05:03→21:42)
--- NOTE | 2018-06-26 06:54 | PN ---
DATE OF SERVICE: 06/25/2018 This is postoperative day 1. HISTORY OF PRESENT ILLNESS: The patient had a fairly comfortable evening. He did not have any temperature spikes. His only complaint is that he still has some abdominal discomfort. He has not passed gas. PHYSICAL EXAMINATION: GENERAL: He is alert and oriented. VITAL SIGNS: His temperature this morning at 4:31 was 97.1. His Is and Os include an output of 500 and the drain was 25 mL and now it is clear. ABDOMEN: There is an occasional bowel sound, although diminished and he is still distended. The incisions are clean with the dressings on. NEUROLOGIC: He is moving about well in his bed. IMPRESSION/PLAN: This is postoperative day 1 status post operation for a ruptured appendicitis with also a localized abscess. He is clinically doing well, but he does show some signs of ileus. I explained this to the patient that we are going to continue having him just on sips of liquids until he starts having return of GI function. We have gone ahead and given him a suppository and will repeat that. We will refrain from using Evarts at this point in time due to the fact that he is not eating. We will continue with IV morphine as well as p.o. Tylenol for the discomfort. He needs to be out of bed today. As far as antibiotics, he will need at least a full 5 days if not 7 depending on his clinical picture and if everything goes well. He is at a high risk for complication. AUBREY /[id number]
--- NOTE | 2018-06-26 07:25 | PCM.PN ---
- General Info Date of Service: 06/26/18 - Patient Data Vitals - Most Recent: Last Vital Signs Temp 98.2 F 06/26/18 03:45 Pulse 90 06/26/18 03:45 Resp 20 06/26/18 03:45 BP 158/92 H 06/26/18 03:45 Pulse Ox 93 L 06/26/18 03:45 Weight - Most Recent: 173 lb I&O - Last 24 Hours: Intake & Output 06/25/18 06/26/18 06/26/18 22:59 06:59 14:59 Intake Total 1485 1350 Output Total 25 10 Balance 1460 1340 Med Orders - Current: Current Medications Acetaminophen (Tylenol) 325 mg PO Q4H PRN PRN Reason: Abdominal Pain Last Admin: 06/26/18 03:39 Dose: 650 mg Piperacillin Sod/Tazobactam (Sod 4.5 gm/ Sodium Chloride) 100 mls @ 25 mls/hr IV Q8H RONALD Last Admin: 06/26/18 05:03 Dose: 25 mls/hr Sodium Chloride (Normal Saline) 1,000 mls @ 50 mls/hr IV ASDIRECTED RONALD Last Admin: 06/26/18 05:01 Dose: 50 mls/hr Morphine Sulfate (Morphine Sulfate) 4 mg IV Q2H PRN PRN Reason: Abdominal Pain Stop: 06/26/18 23:59 Last Admin: 06/26/18 06:56 Dose: 4 mg Sodium Chloride (Saline Flush) 10 ml FLUSH ASDIRECTED PRN PRN Reason: Keep Vein Open Last Admin: 06/24/18 11:45 Dose: 10 ml Discontinued Medications Hydrocodone Bitart/Acetaminophen ([place]ector 325-5 Mg) 2 tab PO Q4H PRN PRN Reason: Pain (moderate 4-6) Last Admin: 06/25/18 07:51 Dose: 2 tab Bisacodyl (Dulcolax) 10 mg RECTAL ONETIME PRN PRN Reason: Constipation Last Admin: 06/25/18 07:52 Dose: 10 mg Bisacodyl (Dulcolax) 10 mg RECTAL ONETIME ONE Stop: 06/25/18 08:38 Last Admin: 06/25/18 14:01 Dose: Not Given Bisacodyl (Dulcolax) 10 mg RECTAL ONETIME RONALD Bisacodyl (Dulcolax) 10 mg RECTAL ONETIME ONE Stop: 06/25/18 14:01 Last Admin: 06/25/18 14:06 Dose: 10 mg Diatrizoate Meglum/Diatrizoate Sod (Gastrografin 37%) 120 ml PO ONETIME ONE Stop: 06/24/18 13:02 Last Admin: 06/24/18 13:38 Dose: 90 ml Diphenhydramine HCl (Benadryl) 25 mg IVPUSH ONETIME ONE Stop: 06/24/18 12:57 Last Admin: 06/24/18 13:02 Dose: 25 mg Fentanyl (Sublimaze) Confirm Administered Dose 250 mcg .ROUTE .STK-MED ONE Stop: 06/24/18 15:03 Fentanyl (Sublimaze) Confirm Administered Dose 250 mcg .ROUTE .STK-MED ONE Stop: 06/24/18 16:11 Fentanyl (Sublimaze) 50 mcg IVPUSH Q5M PRN PRN Reason: Pain Glycopyrrolate () Confirm Administered Dose 1 mg .ROUTE .STK-MED ONE Stop: 06/24/18 16:26 Hydromorphone HCl (Dilaudid) 1 mg IVPUSH ONETIME ONE Stop: 06/24/18 11:30 Last Admin: 06/24/18 11:45 Dose: 1 mg Hydromorphone HCl (Dilaudid) 1 mg IVPUSH ONETIME ONE Stop: 06/24/18 13:33 Last Admin: 06/24/18 13:36 Dose: 1 mg Hydromorphone HCl (Dilaudid) Confirm Administered Dose 0.5 mg .ROUTE .STK-MED ONE Stop: 06/24/18 16:00 Hydromorphone HCl (Dilaudid) Confirm Administered Dose 0.5 mg .ROUTE .STK-MED ONE Stop: 06/24/18 16:00 Hydromorphone HCl (Dilaudid) 0.5 mg IVPUSH Q10M PRN PRN Reason: Pain (severe 7-10) Lactated Ringer's (Ringers, Lactated) 1,000 mls @ 999 mls/hr IV .BOLUS ONE Stop: 06/24/18 12:29 Last Admin: 06/24/18 11:43 Dose: 999 mls/hr Ertapenem 1 gm/ Sodium (Chloride) 100 mls @ 200 mls/hr IV ONETIME ONE Stop: 06/24/18 14:36 Last Admin: 06/24/18 14:18 Dose: 200 mls/hr Lactated Ringer's (Ringers, Lactated) 1,000 mls @ 150 mls/hr IV .BOLUS ONE Stop: 06/24/18 21:13 Last Admin: 06/24/18 14:54 Dose: 150 mls/hr Lidocaine HCl (Xylocaine-Mpf 1%) Confirm Administered Dose 4 mls @ as directed .ROUTE .STK-MED ONE Stop: 06/24/18 15:03 Lactated Ringer's (Ringers, Lactated) Confirm Administered Dose 1,000 mls @ as directed .ROUTE .STK-MED ONE Stop: 06/24/18 16:09 Ertapenem 1 gm/ Sodium (Chloride) 100 mls @ 200 mls/hr IV DAILY RONALD Sodium Chloride (Normal Saline) 1,000 mls @ 100 mls/hr IV ASDIRECTED RONALD Last Admin: 06/25/18 14:13 Dose: 100 mls/hr Piperacillin Sod/Tazobactam (Sod 4.5 gm/ Sodium Chloride) 100 mls @ 200 mls/hr IV ONETIME ONE Stop: 06/25/18 14:29 Last Admin: 06/25/18 14:05 Dose: 200 mls/hr Iopamidol (Isovue-300 (61%)) 100 ml IVPUSH ONETIME ONE Stop: 06/24/18 13:02 Last Admin: 06/24/18 13:39 Dose: 100 ml Lidocaine HCl (Xylocaine-Mpf 1%) Confirm Administered Dose 30 ml .ROUTE .STK- MED ONE Stop: 06/24/18 15:01 Last Admin: 06/24/18 15:50 Dose: 8 ml Magnesium Citrate (Citrate Of Magnesia) 296 ml PO ONETIME ONE Stop: 06/24/18 16:57 Last Admin: 06/24/18 18:16 Dose: 296 ml Midazolam HCl (Versed 1 Mg/Ml) Confirm Administered Dose 2 mg .ROUTE .STK-MED ONE Stop: 06/24/18 15:03 Morphine Sulfate (Morphine) 4 mg IVPUSH Q2H PRN PRN Reason: Abdominal Pain Stop: 06/26/18 23:59 Last Admin: 06/25/18 04:28 Dose: 4 mg Neostigmine Methylsulfate (Neostigmine) Confirm Administered Dose 5 mg .ROUTE .STK-MED ONE Stop: 06/24/18 16:26 Ondansetron HCl (Zofran) 4 mg IVPUSH ONETIME ONE Stop: 06/24/18 11:30 Last Admin: 06/24/18 11:45 Dose: 4 mg Ondansetron HCl (Zofran) Confirm Administered Dose 4 mg .ROUTE .STK-MED ONE Stop: 06/24/18 15:02 Ondansetron HCl (Zofran) 4 mg IVPUSH ONETIME PRN PRN Reason: Nausea/Vomiting Stop: 06/25/18 12:00 Last Admin: 06/25/18 08:13 Dose: 4 mg Propofol (Diprivan 20 Ml) Confirm Administered Dose 200 mg .ROUTE .STK-MED ONE Stop: 06/24/18 15:02 Rocuronium [place] (Zemuron) Confirm Administered Dose 50 mg .ROUTE .STK-MED ONE Stop: 06/24/18 15:02 - Problem List Review Problem List Initiated/Reviewed/Updated: Yes - My Orders Last 24 Hours: My Active Orders 06/25/18 07:45 Morphine Sulfate 4 mg IV Q2H PRN 06/25/18 08:35 Acetaminophen [Tylenol] 325 mg PO Q4H PRN 06/25/18 15:45 Sodium Chloride 0.9% [Normal Saline] 1,000 ml IV ASDIRECTED 06/25/18 22:00 Piperacillin/Tazobactam [Zosyn] 4.5 gm Sodium Chloride 0.9% [Normal Saline] 100 ml IV Q8H 06/25/18 Lunch Consistent Carbohydrate Diet [DIET] - Assessment Assessment:: POD 2 ANTIBX day 3 He had a restful night and had a bm this morning He stated that he feels better PE Afebrile drain--serous abd--less distended and soft dressing--suprapubic dressing removed--clean and dry IMP He continues to progress will need full 5 days of antibx due to the fact that he had an intraabd abscess and a perforated appendix ok to shower with the dressings off reg diet hep lock the iv I discussed with Mr. Mora that the morphine will be decreased today and that he will cont on the tylenol will try to avoid medications that have the potential to harm his single kidney I discussed with Mr. Mora that I will be turning over his care to DR. BOWERS today at 8 AM Mr. Mora remains hypertensive.--If this persists will ask for medical consult. Thank you Dr. Leahy
--- NOTE | 2018-06-26 17:51 | PCM.SN ---
- Free Text/Narrative Note: 52 yo male, h/o illicit drug abuse, POD#2 s/p lap appendectomy with drain placement, performed for acute perforated appendicitis by Dr. Paula Leahy. I took over the care of the patient this morning. He reports persistent pain at the drain site, relieved with PRN morphine IV. Tolerating regular diet, although mild nausea. Had two loose BM's today. Afebrile. Hypertensive, recently 170/90. Abdominal exam with dressing in place to all incisions. Patient at risk for post-op abscess. - Repeat labs (CBC/CRP) in AM. - Transition off narcotics. - Encourage IS and ambulation. Brock "Marjorie" Dimitrios Coats., F.A.C.S. General Surgery Pager: [phone]
[2018-06-26] MEDS: Ondansetron 4 MG/2 ML SDV IVPUSH PRN (18:36)
[2018-06-27] MEDS: Ondansetron 4 MG/2 ML SDV IVPUSH PRN (01:55)
[2018-06-27] MEDS: Piperacillin/Tazobactam 4.5 GM in Sodium Chloride 0.9% 100 ML IV SCH (06:41)
--- NOTE | 2018-06-27 09:54 | PCM.PN ---
- General Info Date of Service: 06/27/18 Admission Dx/Problem (Free Text): acute perforated appendicitis Subjective Update: Improvement in pain today, without need for IV narcotics. Mild nausea, but tolerated regular diet for breakfast. No difficulty voiding. Continues to pass flatus, and had a loose bowel movement. Patient strongly desires to go home today. He has concerns regarding lack of health insurance. - Patient Data Vitals - Most Recent: Last Vital Signs Temp 36.7 C 06/27/18 06:24 Pulse 97 06/27/18 06:24 Resp 18 06/27/18 06:24 BP 172/108 H 06/27/18 06:24 Pulse Ox 96 06/27/18 06:24 Weight - Most Recent: 78.216 kg I&O - Last 24 Hours: Intake & Output 06/26/18 06/27/18 06/27/18 22:59 06:59 14:59 Intake Total 1438 500 Output Total 10 10 Balance 1428 490 Lab Results Last 24 Hours: Laboratory Results - last 24 hr 06/27/18 06/27/18 Range/Units 05:20 05:20 WBC 6.84 (4.23-9.07) K/mm3 RBC 5.23 (4.63-6.08) M/mm3 Hgb 15.2 (13.7-17.5) gm/L Hct 45.7 (40.1-51.0) % MCV 87.4 (79.0-92.2) fl MCH 29.1 (25.7-32.2) pg MCHC 33.3 (32.2-35.5) g/dl RDW Std Deviation 42.5 (35.1-43.9) fL Plt Count 359 H (163-337) K/mm3 MPV 10.2 (9.4-12.3) fl Neut % (Auto) 74.5 H (34.0-67.9) % Lymph % (Auto) 14.3 L (21.8-53.1) % [place] % (Auto) 8.9 (5.3-12.2) % Eos % (Auto) 1.8 (0.8-7.0) Baso % (Auto) 0.1 (0.1-1.2) % Neut # (Auto) 5.09 (1.78-5.38) K/mm3 Lymph # (Auto) 0.98 L (1.32-3.57) K/mm3 [place] # (Auto) 0.61 (0.30-0.82) K/mm3 Eos # (Auto) 0.12 (0.04-0.54) K/mm3 Baso # (Auto) 0.01 (0.01-0.08) K/mm3 C-Reactive Protein 25.1 H* (<1.0) mg/dL Med Orders - Current: Current Medications Acetaminophen (Tylenol) 325 mg PO Q4H PRN PRN Reason: Abdominal Pain Last Admin: 06/26/18 09:20 Dose: 650 mg Piperacillin Sod/Tazobactam (Sod 4.5 gm/ Sodium Chloride) 100 mls @ 25 mls/hr IV Q8H RONALD Last Admin: 06/27/18 06:41 Dose: 25 mls/hr Morphine Sulfate (Morphine Sulfate) 4 mg IV Q2H PRN PRN Reason: Abdominal Pain Last Admin: 06/27/18 06:41 Dose: 4 mg Ondansetron HCl (Zofran) 4 mg IVPUSH Q4H PRN PRN Reason: Nausea Last Admin: 06/27/18 01:55 Dose: 4 mg Sodium Chloride (Saline Flush) 10 ml FLUSH ASDIRECTED PRN PRN Reason: Keep Vein Open Last Admin: 06/24/18 11:45 Dose: 10 ml Discontinued Medications Hydrocodone Bitart/Acetaminophen ([place] 325-5 Mg) 2 tab PO Q4H PRN PRN Reason: Pain (moderate 4-6) Last Admin: 06/25/18 07:51 Dose: 2 tab Bisacodyl (Dulcolax) 10 mg RECTAL ONETIME PRN PRN Reason: Constipation Last Admin: 06/25/18 07:52 Dose: 10 mg Bisacodyl (Dulcolax) 10 mg RECTAL ONETIME ONE Stop: 06/25/18 08:38 Last Admin: 06/25/18 14:01 Dose: Not Given Bisacodyl (Dulcolax) 10 mg RECTAL ONETIME RONAL[facility] Bisacodyl (Dulcolax) 10 mg RECTAL ONETIME ONE Stop: 06/25/18 14:01 Last Admin: 06/25/18 14:06 Dose: 10 mg Diatrizoate Meglum/Diatrizoate Sod (Gastrografin 37%) 120 ml PO ONETIME ONE Stop: 06/24/18 13:02 Last Admin: 06/24/18 13:38 Dose: 90 ml Diphenhydramine HCl (Benadryl) 25 mg IVPUSH ONETIME ONE Stop: 06/24/18 12:57 Last Admin: 06/24/18 13:02 Dose: 25 mg Fentanyl (Sublimaze) Confirm Administered Dose 250 mcg .ROUTE .STK-MED ONE Stop: 06/24/18 15:03 Fentanyl (Sublimaze) Confirm Administered Dose 250 mcg .ROUTE .STK-MED ONE Stop: 06/24/18 16:11 Fentanyl (Sublimaze) 50 mcg IVPUSH Q5M PRN PRN Reason: Pain Glycopyrrolate () Confirm Administered Dose 1 mg .ROUTE .STK-MED ONE Stop: 06/24/18 16:26 Hydromorphone HCl (Dilaudid) 1 mg IVPUSH ONETIME ONE Stop: 06/24/18 11:30 Last Admin: 06/24/18 11:45 Dose: 1 mg Hydromorphone HCl (Dilaudid) 1 mg IVPUSH ONETIME ONE Stop: 06/24/18 13:33 Last Admin: 06/24/18 13:36 Dose: 1 mg Hydromorphone HCl (Dilaudid) Confirm Administered Dose 0.5 mg .ROUTE .STK-MED ONE Stop: 06/24/18 16:00 Hydromorphone HCl (Dilaudid) Confirm Administered Dose 0.5 mg .ROUTE .STK-MED ONE Stop: 06/24/18 16:00 Hydromorphone HCl (Dilaudid) 0.5 mg IVPUSH Q10M PRN PRN Reason: Pain (severe 7-10) Lactated Ringer's (Ringers, Lactated) 1,000 mls @ 999 mls/hr IV .BOLUS ONE Stop: 06/24/18 12:29 Last Admin: 06/24/18 11:43 Dose: 999 mls/hr Ertapenem 1 gm/ Sodium (Chloride) 100 mls @ 200 mls/hr IV ONETIME ONE Stop: 06/24/18 14:36 Last Admin: 06/24/18 14:18 Dose: 200 mls/hr Lactated Ringer's (Ringers, Lactated) 1,000 mls @ 150 mls/hr IV .BOLUS ONE Stop: 06/24/18 21:13 Last Admin: 06/24/18 14:54 Dose: 150 mls/hr Lidocaine HCl (Xylocaine-Mpf 1%) Confirm Administered Dose 4 mls @ as directed .ROUTE .STK-MED ONE Stop: 06/24/18 15:03 Lactated Ringer's (Ringers, Lactated) Confirm Administered Dose 1,000 mls @ as directed .ROUTE .STK-MED ONE Stop: 06/24/18 16:09 Ertapenem 1 gm/ Sodium (Chloride) 100 mls @ 200 mls/hr IV DAILY RONALD Sodium Chloride (Normal Saline) 1,000 mls @ 100 mls/hr IV ASDIRECTED RONALD Last Admin: 06/25/18 14:13 Dose: 100 mls/hr Piperacillin Sod/Tazobactam (Sod 4.5 gm/ Sodium Chloride) 100 mls @ 200 mls/hr IV ONETIME ONE Stop: 06/25/18 14:29 Last Admin: 06/25/18 14:05 Dose: 200 mls/hr Sodium Chloride (Normal Saline) 1,000 mls @ 50 mls/hr IV ASDIRECTED [facility] Last Admin: 06/26/18 05:01 Dose: 50 mls/hr Iopamidol (Isovue-300 (61%)) 100 ml IVPUSH ONETIME ONE Stop: 06/24/18 13:02 Last Admin: 06/24/18 13:39 Dose: 100 ml Lidocaine HCl (Xylocaine-Mpf 1%) Confirm Administered Dose 30 ml .ROUTE .STK- MED ONE Stop: 06/24/18 15:01 Last Admin: 06/24/18 15:50 Dose: 8 ml Magnesium Citrate (Citrate Of Magnesia) 296 ml PO ONETIME ONE Stop: 06/24/18 16:57 Last Admin: 06/24/18 18:16 Dose: 296 ml Midazolam HCl (Versed 1 Mg/Ml) Confirm Administered Dose 2 mg .ROUTE .STK-MED ONE Stop: 06/24/18 15:03 Morphine Sulfate (Morphine) 4 mg IVPUSH Q2H PRN PRN Reason: Abdominal Pain Stop: 06/26/18 23:59 Last Admin: 06/25/18 04:28 Dose: 4 mg Morphine Sulfate (Morphine Sulfate) 4 mg IV Q2H PRN PRN Reason: Abdominal Pain Stop: 06/26/18 23:59 Last Admin: 06/26/18 12:02 Dose: 4 mg Neostigmine Methylsulfate (Neostigmine) Confirm Administered Dose 5 mg .ROUTE .STK-MED ONE Stop: 06/24/18 16:26 Ondansetron HCl (Zofran) 4 mg IVPUSH ONETIME ONE Stop: 06/24/18 11:30 Last Admin: 06/24/18 11:45 Dose: 4 mg Ondansetron HCl (Zofran) Confirm Administered Dose 4 mg .ROUTE .STK-MED ONE Stop: 06/24/18 15:02 Ondansetron HCl (Zofran) 4 mg IVPUSH ONETIME PRN PRN Reason: Nausea/Vomiting Stop: 06/25/18 12:00 Last Admin: 06/25/18 08:13 Dose: 4 mg Propofol (Diprivan 20 Ml) Confirm Administered Dose 200 mg .ROUTE .STK-MED ONE Stop: 06/24/18 15:02 Rocuronium [place] (Zemuron) Confirm Administered Dose 50 mg .ROUTE .STK-MED ONE Stop: 06/24/18 15:02 - Exam General: Alert, Oriented, Cooperative GI/Abdominal Exam: Soft, Tender (approriately tender at the incisions.), Other ( Drain in place, with small amount of SS fluid. Lap incisions C/D/I with steri- strips) - Problem List & Annotations (1) Perforated appendicitis SNOMED Code(s): 22671817 Code(s): K35.32 - ACUTE APPENDICITIS WITH PERF AND LOC PERITONITIS, W/O ABSCS Status: Acute - Problem List Review Problem List Initiated/Reviewed/Updated: Yes - My Orders Last 24 Hours: My Active Orders 06/26/18 12:49 Morphine Sulfate 4 mg IV Q2H PRN 06/26/18 17:52 Ondansetron [Zofran] 4 mg IVPUSH Q4H PRN 06/28/18 05:11 CBC WITH AUTO DIFF [HEME] AM CRP [C-REACTIVE PROTEIN] [CHEM] AM 06/29/18 05:11 CBC WITH AUTO DIFF [HEME] AM CRP [C-REACTIVE PROTEIN] [CHEM] AM - Plan Plan:: 52 yo male, active smoker, POD#3 s/p lap appendectomy and drain placement, for acute perforated appendicitis, performed by Dr. Paula Leahy. Clinically improved. WBC 15 pre-op to now 6.8 CRP was 42 pre-op to now 25. - JOSE LUIS drain removed this morning. - D/C home. - Continue antibiotics as outpatient (Augmentin and Flagyl) for additional 5 days. - Post-op care instructions were given. Underlying hypertension, and hypertensive during hospital admission. - Instructed patient to F/u with PCM regarding hypertension. Tobacco cessation discussed. Brock Coats M.D., F.A.C.S. General Surgery Pager: [phone]
--- NOTE | 2018-06-27 09:59 | PCM.DCSUM1 ---
Discharge Summary - Hospital Course Free Text/Narrative:: The patient was admitted for acute appendicitis, and was taken to the OR on [id number] for laparosocpic appendectomy and drain placement. Intraoperatively, he was noted to have perforated appendicitis with localized abscess. Postoperatively, the patietne as kept on IV Zosyn, and he clinically improved. Pain was controlled with narcotics, and he was weaned off IV narcotics. By POD#3 , the patient's drain output had decreased significantly, and the JOSE LUIS drain was removed. The patient met discharge criteria, and will continue on an additional 5 day course of oral antibiotics (Augmentin/Flagyl). During hospitalization, he had hypertension (has history of underlying untreated hypertension). Diagnosis: Stroke: No - Discharge Data Discharge Date: 06/27/18 Discharge Disposition: Home, Self-Care 01 Condition: Good - Discharge Diagnosis/Problem(s) (1) Perforated appendicitis SNOMED Code(s): 95718893 ICD Code: K35.32 - ACUTE APPENDICITIS WITH PERF AND LOC PERITONITIS, W/O ABSCS Status: Acute - Patient Instructions Diet: Regular Diet as Tolerated Activity: No Lifting Over 20 Pounds (for 4 weeks post-operatively.), No Strenuous Activities (for 4 weeks post-operatively.) Driving: Do Not Drive (while on pain medication) Showering/Bathing: May Shower, No Tub Bathing/Swimming Notify Provider of: Fever, Increased Pain, Swelling and Redness, Drainage, Nausea and/or Vomiting Other/Special Instructions: May also use acetaminophen [id number] for pain control. Percocet also contains acetaminophen. Make sure not to exceed 4 grams of acetaminophen in 24 hours. - Discharge Plan *PRESCRIPTION DRUG MONITORING PROGRAM REVIEWED*: No *COPY OF PRESCRIPTION DRUG MONITORING REPORT IN PATIENT [place]: No Prescriptions/Med Rec: Acetaminophen/oxyCODONE [Percocet 325-5 MG] 1 - 2 tab PO Q4H PRN #10 tab PRN Reason: Pain Amoxicillin/Potassium Clav [Augmentin 875-125 Tablet] 1 each PO BID 5 Days #10 tablet Docusate Sodium [Colace] 100 mg PO BID #10 capsule metroNIDAZOLE [Flagyl] 500 mg PO Q8H 5 Days #15 tab Home Medications: Home Meds Acetaminophen/oxyCODONE [Percocet 325-5 MG] 1 - 2 tab PO Q4H PRN #10 tab 01/16/ 19 [Rx] Amoxicillin/Potassium Clav [Augmentin 875-125 Tablet] 1 each PO BID 5 Days #10 tablet 06/27/18 [Rx] Docusate Sodium [Colace] 100 mg PO BID #10 capsule 06/27/18 [Rx] metroNIDAZOLE [Flagyl] 500 mg PO Q8H 5 Days #15 tab 06/27/18 [Rx] Patient Handouts: Appendicitis, Laparoscopic Appendectomy, Adult, Care After, Surgical Site Infections FAQs - [facility], Steps to Quit Smoking Referrals: PCP,None [Primary Care Provider] - (You will need follow-up with your primary care physician for evaluation and treatment of hypertension.) Brock Coats MD [Physician] - (Follow-up in the General Surgery clinic in 3-[address]Siri Jennifer's nurse, will call you with an appointment.) - Discharge Summary/Plan Comment DC Time >30 min.: Yes - Patient Data Vitals - Most Recent: Last Vital Signs Temp 36.7 C 06/27/18 06:24 Pulse 97 06/27/18 06:24 Resp 18 06/27/18 06:24 BP 172/108 H 06/27/18 06:24 Pulse Ox 96 06/27/18 06:24 Weight - Most Recent: 78.216 kg I&O - Last 24 hours: Intake & Output 06/26/18 06/27/18 06/27/18 22:59 06:59 14:59 Intake Total 1438 500 Output Total 10 10 Balance 1428 490 Lab Results - Last 24 hrs: Laboratory Results - last 24 hr 06/27/18 06/27/18 Range/Units 05:20 05:20 WBC 6.84 (4.23-9.07) K/mm3 RBC 5.23 (4.63-6.08) M/mm3 Hgb 15.2 (13.7-17.5) gm/L Hct 45.7 (40.1-51.0) % MCV 87.4 (79.0-92.2) fl MCH 29.1 (25.7-32.2) pg MCHC 33.3 (32.2-35.5) g/dl RDW Std Deviation 42.5 (35.1-43.9) fL Plt Count 359 H (163-337) K/mm3 MPV 10.2 (9.4-12.3) fl Neut % (Auto) 74.5 H (34.0-67.9) % Lymph % (Auto) 14.3 L (21.8-53.1) % [place] % (Auto) 8.9 (5.3-12.2) % Eos % (Auto) 1.8 (0.8-7.0) Baso % (Auto) 0.1 (0.1-1.2) % Neut # (Auto) 5.09 (1.78-5.38) K/mm3 Lymph # (Auto) 0.98 L (1.32-3.57) K/mm3 [place] # (Auto) 0.61 (0.30-0.82) K/mm3 Eos # (Auto) 0.12 (0.04-0.54) K/mm3 Baso # (Auto) 0.01 (0.01-0.08) K/mm3 C-Reactive Protein 25.1 H* (<1.0) mg/dL Med Orders - Current: Current Medications Acetaminophen (Tylenol) 325 mg PO Q4H PRN PRN Reason: Abdominal Pain Last Admin: 06/26/18 09:20 Dose: 650 mg Piperacillin Sod/Tazobactam (Sod 4.5 gm/ Sodium Chloride) 100 mls @ 25 mls/hr IV Q8H RONALD Last Admin: 06/27/18 06:41 Dose: 25 mls/hr Morphine Sulfate (Morphine Sulfate) 4 mg IV Q2H PRN PRN Reason: Abdominal Pain Last Admin: 06/27/18 06:41 Dose: 4 mg Ondansetron HCl (Zofran) 4 mg IVPUSH Q4H PRN PRN Reason: Nausea Last Admin: 06/27/18 01:55 Dose: 4 mg Sodium Chloride (Saline Flush) 10 ml FLUSH ASDIRECTED PRN PRN Reason: Keep Vein Open Last Admin: 06/24/18 11:45 Dose: 10 ml Discontinued Medications Hydrocodone Bitart/Acetaminophen ([place] 325-5 Mg) 2 tab PO Q4H PRN PRN Reason: Pain (moderate 4-6) Last Admin: 06/25/18 07:51 Dose: 2 tab Bisacodyl (Dulcolax) 10 mg RECTAL ONETIME PRN PRN Reason: Constipation Last Admin: 06/25/18 07:52 Dose: 10 mg Bisacodyl (Dulcolax) 10 mg RECTAL ONETIME ONE Stop: 06/25/18 08:38 Last Admin: 06/25/18 14:01 Dose: Not Given Bisacodyl (Dulcolax) 10 mg RECTAL ONETIME RONALD Bisacodyl (Dulcolax) 10 mg RECTAL ONETIME ONE Stop: 06/25/18 14:01 Last Admin: 06/25/18 14:06 Dose: 10 mg Diatrizoate Meglum/Diatrizoate Sod (Gastrografin 37%) 120 ml PO ONETIME ONE Stop: 06/24/18 13:02 Last Admin: 06/24/18 13:38 Dose: 90 ml Diphenhydramine HCl (Benadryl) 25 mg IVPUSH ONETIME ONE Stop: 06/24/18 12:57 Last Admin: 06/24/18 13:02 Dose: 25 mg Fentanyl (Sublimaze) Confirm Administered Dose 250 mcg .ROUTE .STK-MED ONE Stop: 06/24/18 15:03 Fentanyl (Sublimaze) Confirm Administered Dose 250 mcg .ROUTE .STK-MED ONE Stop: 06/24/18 16:11 Fentanyl (Sublimaze) 50 mcg IVPUSH Q5M PRN PRN Reason: Pain Glycopyrrolate () Confirm Administered Dose 1 mg .ROUTE .STK-MED ONE Stop: 06/24/18 16:26 Hydromorphone HCl (Dilaudid) 1 mg IVPUSH ONETIME ONE Stop: 06/24/18 11:30 Last Admin: 06/24/18 11:45 Dose: 1 mg Hydromorphone HCl (Dilaudid) 1 mg IVPUSH ONETIME ONE Stop: 06/24/18 13:33 Last Admin: 06/24/18 13:36 Dose: 1 mg Hydromorphone HCl (Dilaudid) Confirm Administered Dose 0.5 mg .ROUTE .STK-MED ONE Stop: 06/24/18 16:00 Hydromorphone HCl (Dilaudid) Confirm Administered Dose 0.5 mg .ROUTE .STK-MED ONE Stop: 06/24/18 16:00 Hydromorphone HCl (Dilaudid) 0.5 mg IVPUSH Q10M PRN PRN Reason: Pain (severe 7-10) Lactated Ringer's (Ringers, Lactated) 1,000 mls @ 999 mls/hr IV .BOLUS ONE Stop: 06/24/18 12:29 Last Admin: 06/24/18 11:43 Dose: 999 mls/hr Ertapenem 1 gm/ Sodium (Chloride) 100 mls @ 200 mls/hr IV ONETIME ONE Stop: 06/24/18 14:36 Last Admin: 06/24/18 14:18 Dose: 200 mls/hr Lactated Ringer's (Ringers, Lactated) 1,000 mls @ 150 mls/hr IV .BOLUS ONE Stop: 06/24/18 21:13 Last Admin: 06/24/18 14:54 Dose: 150 mls/hr Lidocaine HCl (Xylocaine-Mpf 1%) Confirm Administered Dose 4 mls @ as directed .ROUTE .STK-MED ONE Stop: 06/24/18 15:03 Lactated Ringer's (Ringers, Lactated) Confirm Administered Dose 1,000 mls @ as directed .ROUTE .STK-MED ONE Stop: 06/24/18 16:09 Ertapenem 1 gm/ Sodium (Chloride) 100 mls @ 200 mls/hr IV DAILY [facility] Sodium Chloride (Normal Saline) 1,000 mls @ 100 mls/hr IV ASDIRECTED [facility] Last Admin: 06/25/18 14:13 Dose: 100 mls/hr Piperacillin Sod/Tazobactam (Sod 4.5 gm/ Sodium Chloride) 100 mls @ 200 mls/hr IV ONETIME ONE Stop: 06/25/18 14:29 Last Admin: 06/25/18 14:05 Dose: 200 mls/hr Sodium Chloride (Normal Saline) 1,000 mls @ 50 mls/hr IV ASDIRECTED [facility] Last Admin: 06/26/18 05:01 Dose: 50 mls/hr Iopamidol (Isovue-300 (61%)) 100 ml IVPUSH ONETIME ONE Stop: 06/24/18 13:02 Last Admin: 06/24/18 13:39 Dose: 100 ml Lidocaine HCl (Xylocaine-Mpf 1%) Confirm Administered Dose 30 ml .ROUTE .STK- MED ONE Stop: 06/24/18 15:01 Last Admin: 06/24/18 15:50 Dose: 8 ml Magnesium Citrate (Citrate Of Magnesia) 296 ml PO ONETIME ONE Stop: 06/24/18 16:57 Last Admin: 06/24/18 18:16 Dose: 296 ml Midazolam HCl (Versed 1 Mg/Ml) Confirm Administered Dose 2 mg .ROUTE .STK-MED ONE Stop: 06/24/18 15:03 Morphine Sulfate (Morphine) 4 mg IVPUSH Q2H PRN PRN Reason: Abdominal Pain Stop: 06/26/18 23:59 Last Admin: 06/25/18 04:28 Dose: 4 mg Morphine Sulfate (Morphine Sulfate) 4 mg IV Q2H PRN PRN Reason: Abdominal Pain Stop: 06/26/18 23:59 Last Admin: 06/26/18 12:02 Dose: 4 mg Neostigmine Methylsulfate (Neostigmine) Confirm Administered Dose 5 mg .ROUTE .STK-MED ONE Stop: 06/24/18 16:26 Ondansetron HCl (Zofran) 4 mg IVPUSH ONETIME ONE Stop: 06/24/18 11:30 Last Admin: 06/24/18 11:45 Dose: 4 mg Ondansetron HCl (Zofran) Confirm Administered Dose 4 mg .ROUTE .STK-MED ONE Stop: 06/24/18 15:02 Ondansetron HCl (Zofran) 4 mg IVPUSH ONETIME PRN PRN Reason: Nausea/Vomiting Stop: 06/25/18 12:00 Last Admin: 06/25/18 08:13 Dose: 4 mg Propofol (Diprivan 20 Ml) Confirm Administered Dose 200 mg .ROUTE .STK-MED ONE Stop: 06/24/18 15:02 Rocuronium [place] (Zemuron) Confirm Administered Dose 50 mg .ROUTE .STK-MED ONE Stop: 06/24/18 15:02
== END 2018-06-27 11:39 | disposition home or self-care (01) | DRG 340 ==
LOC: JD.ED 10:20 → JD.SDS 14:48 → JD.MS 17:13
PROVIDERS: ADMIT Surgery; ATTEND Surgery
PROC: 0DTJ4ZZ Resection of Appendix, Percutaneous Endoscopic Approach (ICD-10-PCS; principal; 2018-06-24)
DX: K35.33 Acute appendicitis with perforation, localized peritonitis, and gangrene, with abscess (principal); I10 Essential (primary) hypertension; E86.0 Dehydration; F17.200 Nicotine dependence, unspecified, uncomplicated; Z91.030 Bee allergy status; Z91.041 Radiographic dye allergy status; Z90.5 Acquired absence of kidney
CPT/HCPCS: 00840; 36415; 74177; 74177-26; 80053; 81001; 83690; 85007; 85025; 85027; 86140; 93005; 96361; 96365; 96375; 96376; 99285; 99285-25; A9270-GY; J1170; J1200; J1335; J2001; J2250; J2270; J2405; J2543; J2704; J2710; J3010; J7030; J7040; J7120; Q9963; Q9967

== ENCOUNTER 2024-05-28 13:38 | Emergency (ER) | payer MEDICAID ==
[2024-05-28 16:04] LABS: BASOPHILS ABSOLUTE AUTO 0.1 K/mm3 (0.0-0.2); BASOPHILS PERCENT AUTO 0.8 % (0.0-1.0); EOSINOPHILS ABSOLUTE AUTO 0.2 K/mm3 (0.0-0.4); EOSINOPHILS PERCENT AUTO 1.6 % (0.0-6.0); HEMATOCRIT 47.1 % (42.0-52.0); HEMOGLOBIN 14.9 gm/dl (14.0-18.0); IMMATURE GRAN ABSOLUTE AUTO 0.06 K/mm3 (0.00-0.05); IMMATURE GRAN PERCENT AUTO 0.5 % (0.0-0.4); LYMPHOCYTES ABSOLUTE AUTO 3.2 K/mm3 (1.0-4.8); LYMPHOCYTES PERCENT AUTO 29.5 % (24.0-44.0); MEAN CORPUSCULAR HEMOGLOBIN 28.7 pg (28.0-32.0); MEAN CORPUSCULAR HGB CONC 31.6 g/dl (32.0-36.0); MEAN CORPUSCULAR VOLUME 90.8 fl (83.0-99.0); MEAN PLATELET VOLUME 9.8 fl (9.4-12.4); MONOCYTES ABSOLUTE AUTO 0.7 K/mm3 (0.0-0.8); NEUTROPHILS ABSOLUTE AUTO 6.7 K/mm3 (1.8-7.7); NEUTROPHILS PERCENT AUTO 61.6 % (41.0-71.0); PLATELET COUNT,PLT 350 K/mm3 (150-400); RED BLOOD CELL COUNT 5.19 M/mm3 (4.52-5.90); WHITE BLOOD CELL COUNT,WBC 10.92 K/mm3 (3.9-11.3)
[2024-05-28 16:25] LABS: A/G RATIO 0.8 (1-2); ALBUMIN 3.2 g/dl (3.4-5.0); ANION GAP 13.1 (5-15); BILIRUBIN TOTAL 0.2 mg/dL (0.2-1.0); BUN/CREATININE RATIO 14.2 (14-18); CALCIUM 9.3 mg/dL (8.5-10.1); CREATININE 1.2 mg/dL (0.7-1.3); EST CRCL DRUG DOSING (CG) 70.97 mL/min; POTASSIUM,K 4.1 mEq/L (3.5-5.1); PROTEIN TOTAL,TP 7.4 g/dl (6.4-8.2)
== END 2024-05-28 18:15 | disposition home or self-care (01) ==
LOC: JD.ED 13:38
DX: M65.971 Unspecified synovitis and tenosynovitis, right ankle and foot (principal); F17.210 Nicotine dependence, cigarettes, uncomplicated; Z79.899 Other long term (current) drug therapy; Z91.030 Bee allergy status; Z91.048 Other nonmedicinal substance allergy status
CPT/HCPCS: 36415; 73630-26-RT; 73630-RT; 76881-26-RT; 76881-RT; 80053; 85025; 99283; 99284